=== PATIENT | male | born 1960 | race Caucasian/White ===

== ENCOUNTER 2020-02-07 11:49 | Observation (INO) ==
[2020-02-07 12:43] LABS: Bilirubin,Urine Negative (Negative); Blood,Urine Large (Negative); Clarity,Urine Turbid (Clear); Color,Urine Light-Orange (Yellow); Glucose,Urine (UA) Normal (Normal); Ketones,Urine Negative (Negative); Leukocyte Esterase,Urine Trace (Negative); Mucus,Urine Few per lpf (None-Few); Nitrite,Urine Negative (Negative); Protein,Urine 70 mg/dL (Neg-Trace); RBC,Urine TNTC per hpf (0-3); Specific Gravity,Urine 1.017 (1.010-1.025); Urobilinogen,Urine Normal (Normal); WBC,Urine 30-50 per hpf (0-3)
[2020-02-07] MEDS ORDERED: Ondansetron 4 MG/2 ML VIAL IVP ONE (13:10)
[2020-02-07] MEDS ORDERED: Morphine Sulfate 2 MG/ML SYRINGE IVP ONE (13:10)
[2020-02-07 14:06] LABS: Basophils % 0.1 %; Eosinophils % 0.1 %; Hematocrit 29.6 % (37.5-50.1); Hemoglobin 9.1 g/dL (12.9-16.9); Immature Granulocytes % 0.8 % (0-4); Lymphocytes # 0.7 K/mcL (0.6-4.6); Lymphocytes % 4.4 %; Mean Corpuscular HGB Conc 30.7 g/dL (31.6-35.5); Mean Corpuscular Hemoglobin 25.2 pg (28.0-33.3); Mean Platelet Volume 8.9 fL (9.4-12.4); Monocytes # 0.4 K/mcL (0.0-1.3); Monocytes % 2.4 %; Neutrophils # 14.6 K/mcL (1.6-8.9); Nucleated Red Blood Cells 0.1 /100 WBC (0); Platelet Count 303 K/mcL (140-400); Red Blood Count 3.61 M/mcL (4.19-5.50); Red Cell Distribution Width 15.7 % (11.5-14.5); Segmented Neutrophils % 92.2 %; White Blood Count 15.8 K/mcL (4.3-11.1)
[2020-02-07 14:10] LABS: Prothrombin Time 11.2 Seconds (9.4-12.1)
[2020-02-07 14:26] LABS: Albumin 3.6 g/dL (3.5-5.7); Bilirubin,Direct 0.1 mg/dL (0.0-0.2); Bilirubin,Indirect 0.1 mg/dL (0.0-1.0); Bilirubin,Total 0.2 mg/dL (0.3-1.0); Calcium 9.3 mg/dL (8.6-10.3); Globulin 3.5 g/dL (2.4-3.5); Potassium 5.2 mEq/L (3.5-5.1); Total Protein 7.1 g/dL (6.4-8.9)
[2020-02-07 14:36] LABS: Troponin I 0.12 ng/mL (< 0.04)
[2020-02-07 14:37] LABS: Carcinoembryonic Antigen 11.6 ng/mL (Less than 5.0)
[2020-02-07] MEDS ORDERED: Piperacillin/Tazobactam 3.375 GM in 0.9 % Sodium Chloride Mini Bag 100 ML IVPB ONE (15:20)
[2020-02-07] MEDS ORDERED: Naloxone 0.4 MG/ML INJ IVP PRN (16:04)
[2020-02-07] MEDS ORDERED: Acetaminophen 325 MG TABLET PO PRN (16:04)
[2020-02-07] MEDS ORDERED: Ondansetron 4 MG/2 ML VIAL IVP PRN (16:04)
[2020-02-07] MEDS ORDERED: *HR* HYDROcodone/Acet 5/325 mg TABLET PO PRN (16:04)
[2020-02-07] MEDS: 0.9 % Sodium Chloride 1,000 ML IVC SCH (17:41)
[2020-02-07 19:13] LABS: Adenovirus Not Detected (Not Detect); Bordetella Pertussis Not Detected (Not Detect); Chlamydophila pneumoniae Not Detected (Not Detect); Coronavirus 229E Not Detected (Not Detect); Coronavirus HKU1 Not Detected (Not Detect); Coronavirus NL63 Not Detected (Not Detect); Coronavirus OC43 Not Detected (Not Detect); Human Metapneumovirus Not Detected (Not Detect); Human Rhinovirus/Enterovirus Not Detected (Not Detect); Influenza A Subtype 2009 H1 Not Detected (Not Detect); Influenza B Not Detected (Not Detect); Mycoplasma pneumoniae Not Detected (Not Detect); Parainfluenza Virus 1 Not Detected (Not Detect); Parainfluenza Virus 2 Not Detected (Not Detect); Parainfluenza Virus 3 Not Detected (Not Detect); Parainfluenza Virus 4 Not Detected (Not Detect); Respiratory Syncytial Virus Not Detected (Not Detect)
[2020-02-07 19:16] LABS: SARS-CoV-2 Not Detected (Not Detect)
[2020-02-07] MEDS: dexAMETHasone 4 MG TABLET PO SCH (20:16)
[2020-02-07] MEDS: levETIRAcetam 250 MG TABLET PO SCH (20:16)
[2020-02-07] MEDS: *HR* OxyCODONE Immed Rel 5 MG TABLET PO PRN (20:16)
[2020-02-07] MEDS: Albuterol 2.5 MG/3 ML NEBULIZER IH PRN (20:56)
[2020-02-08 02:00] LABS: Basophils % 0.1 %; Hematocrit 29.2 % (37.5-50.1); Hemoglobin 8.8 g/dL (12.9-16.9); Immature Granulocytes % 1.1 % (0-4); Lymphocytes # 0.3 K/mcL (0.6-4.6); Lymphocytes % 2.3 %; Mean Corpuscular HGB Conc 30.1 g/dL (31.6-35.5); Mean Corpuscular Hemoglobin 24.9 pg (28.0-33.3); Mean Corpuscular Volume 82.7 fL (83.0-100.0); Monocytes # 0.3 K/mcL (0.0-1.3); Monocytes % 2.3 %; Neutrophils # 14.1 K/mcL (1.6-8.9); Platelet Count 294 K/mcL (140-400); Red Blood Count 3.53 M/mcL (4.19-5.50); Red Cell Distribution Width 15.6 % (11.5-14.5); Segmented Neutrophils % 94.2 %
[2020-02-08 02:17] LABS: Calcium 8.6 mg/dL (8.6-10.3); Potassium 5.7 mEq/L (3.5-5.1)
[2020-02-08] MEDS: *HR* OxyCODONE Immed Rel 5 MG TABLET PO PRN ×2 (03:34→19:40)
[2020-02-08] MEDS: Albuterol 2.5 MG/3 ML NEBULIZER IH PRN (03:37)
[2020-02-08] MEDS ORDERED: methocarbamoL 500 MG TABLET PO PRN (03:45)
[2020-02-08] MEDS: Piperacillin/Tazobactam 3.375 GM in 0.9 % Sodium Chloride Mini Bag 100 ML IVPB SCH ×2 (05:44→17:32)
[2020-02-08] MEDS: 0.9 % Sodium Chloride 1,000 ML IVC SCH (06:56)
[2020-02-08] MEDS: dexAMETHasone 4 MG TABLET PO SCH ×2 (08:52→19:37)
[2020-02-08] MEDS: levETIRAcetam 250 MG TABLET PO SCH ×2 (08:52→19:36)
[2020-02-08] MEDS ORDERED: D5% in Water 1,000 ML IVC PRN (11:26)
[2020-02-08] MEDS ORDERED: Dextrose Gel 15 GM/37.5 ML TUBE PO PRN ×2 (11:26)
[2020-02-08] MEDS ORDERED: *HR* Dextrose 50 % in Water (Vial) 50 ML VIAL IVP PRN (11:26)
[2020-02-08] MEDS: *HR* SitaGLIPtin 25 MG TABLET PO SCH (12:39)
[2020-02-08] MEDS: Insulin LISPRO 300 UNITS/3 ML VIAL SQ SCH ×2 (12:41→17:35)
[2020-02-09] MEDS: Piperacillin/Tazobactam 3.375 GM in 0.9 % Sodium Chloride Mini Bag 100 ML IVPB SCH (05:31)
[2020-02-09 06:00] LABS: Hematocrit 28.8 % (37.5-50.1); Hemoglobin 8.6 g/dL (12.9-16.9); Mean Corpuscular HGB Conc 29.9 g/dL (31.6-35.5); Mean Corpuscular Hemoglobin 24.9 pg (28.0-33.3); Mean Corpuscular Volume 83.2 fL (83.0-100.0); Mean Platelet Volume 9.1 fL (9.4-12.4); Platelet Count 278 K/mcL (140-400); Red Blood Count 3.46 M/mcL (4.19-5.50); Red Cell Distribution Width 15.4 % (11.5-14.5); White Blood Count 12.8 K/mcL (4.3-11.1)
[2020-02-09 06:27] LABS: Calcium 8.4 mg/dL (8.6-10.3); Potassium 5.2 mEq/L (3.5-5.1)
[2020-02-09 06:40] LABS: Folate 5.6 ng/mL (3.0-16.0)
[2020-02-09] MEDS: levETIRAcetam 250 MG TABLET PO SCH (07:58)
[2020-02-09] MEDS: dexAMETHasone 4 MG TABLET PO SCH (07:58)
[2020-02-09] MEDS: *HR* SitaGLIPtin 25 MG TABLET PO SCH (07:58)
[2020-02-09] MEDS: Insulin LISPRO 300 UNITS/3 ML VIAL SQ SCH ×2 (07:58→12:12)
[2020-02-09] MEDS: *HR* OxyCODONE Immed Rel 5 MG TABLET PO PRN (10:05)
[2020-02-09] MEDS ORDERED: Cyanocobalamin (B-12) 1,000 MCG/ML VIAL SQ ONE (10:21)
[2020-02-09] MEDS ORDERED: NON-FORMULARY MEDICATION 1 EACH EACH (Oxycodone Immed Rel 10 MG) PO PRN (10:22)
[2020-02-09] MEDS ORDERED: amLODIPine 5 MG TABLET PO SCH (10:30)
[2020-02-09 14:47] VITALS: BP 166/80
== END 2020-02-09 15:06 | disposition home or self-care (01) ==
LOC: 2ANU 11:49 → EMEROOARM 11:49 → SUATTDRO 16:24 → 2ANU 17:27
PROVIDERS: ADMIT Internal Medicine; ATTEND Internal Medicine

== ENCOUNTER 2020-04-03 17:13 | Inpatient (IN) ==
[2020-04-03] MEDS ORDERED: 0.9 % Sodium Chloride 1,000 ML IVC ONE ×2 (17:42→20:13)
[2020-04-03] MEDS ORDERED: Ipratropium/Albuterol Neb 3 ML IH ONE (17:42)
[2020-04-03] MEDS ORDERED: Vancomycin 1,500 MG/265 ML IV.SOLN IVPB ONE (17:45)
[2020-04-03] MEDS ORDERED: Cefepime HCl 1,000 MG in 0.9 % Sodium Chloride Mini Bag 100 ML IVPB STA (17:46)
[2020-04-03 18:08] LABS: Basophils % 0.1 %; Hematocrit 31.8 % (37.5-50.1); Immature Granulocytes % 0.6 % (0-4); Lymphocytes # 0.6 K/mcL (0.6-4.6); Lymphocytes % 4.4 %; Mean Corpuscular HGB Conc 31.4 g/dL (31.6-35.5); Mean Corpuscular Hemoglobin 26.7 pg (28.0-33.3); Mean Platelet Volume 8.7 fL (9.4-12.4); Monocytes # 0.7 K/mcL (0.0-1.3); Monocytes % 4.9 %; Neutrophils # 12.4 K/mcL (1.6-8.9); Platelet Count 214 K/mcL (140-400); Red Blood Count 3.74 M/mcL (4.19-5.50); Red Cell Distribution Width 21.7 % (11.5-14.5); White Blood Count 13.7 K/mcL (4.3-11.1)
[2020-04-03 18:39] LABS: Albumin 3.6 g/dL (3.5-5.7); Albumin/Globulin Ratio 0.9 (1.1-2.2); Bilirubin,Indirect 0.3 mg/dL (0.0-1.0); Bilirubin,Total 0.3 mg/dL (0.3-1.0); Calcium 9.6 mg/dL (8.6-10.3); Globulin 3.8 g/dL (2.4-3.5); Potassium 5.8 mEq/L (3.5-5.1); Total Protein 7.4 g/dL (6.4-8.9); Troponin I 0.07 ng/mL (< 0.04)
[2020-04-03 20:28] LABS: Adenovirus Not Detected (Not Detect); Coronavirus 229E Not Detected (Not Detect); Coronavirus HKU1 Not Detected (Not Detect); Coronavirus NL63 Not Detected (Not Detect); Coronavirus OC43 Not Detected (Not Detect)
[2020-04-03 20:29] LABS: Bordetella Pertussis Not Detected (Not Detect); Chlamydophila pneumoniae Not Detected (Not Detect); Human Metapneumovirus Not Detected (Not Detect); Human Rhinovirus/Enterovirus DETECTED (Not Detect); Influenza A Subtype 2009 H1 Not Detected (Not Detect); Influenza B Not Detected (Not Detect); Mycoplasma pneumoniae Not Detected (Not Detect); Parainfluenza Virus 1 Not Detected (Not Detect); Parainfluenza Virus 2 Not Detected (Not Detect); Parainfluenza Virus 3 Not Detected (Not Detect); Parainfluenza Virus 4 Not Detected (Not Detect); Respiratory Syncytial Virus Not Detected (Not Detect); SARS-CoV-2 Not Detected (Not Detect)
[2020-04-03] MEDS ORDERED: Dexamethasone 4 MG/ML VIAL IVP ONE (20:34)
[2020-04-03 21:27] LABS: Bacteria,Urine Few per hpf (None-Few); Bilirubin,Urine Negative (Negative); Blood,Urine Small (Negative); Clarity,Urine Clear (Clear); Color,Urine Colorless (Yellow); Glucose,Urine (UA) Normal (Normal); Ketones,Urine Negative (Negative); Leukocyte Esterase,Urine Negative (Negative); Mucus,Urine Few per lpf (None-Few); Nitrite,Urine Negative (Negative); Protein,Urine 50 mg/dL (Neg-Trace); Specific Gravity,Urine 1.013 (1.010-1.025); Urobilinogen,Urine Normal (Normal); WBC,Urine 0-3 per hpf (0-3)
[2020-04-03] MEDS ORDERED: Naloxone 0.4 MG/ML INJ IVP PRN (21:40)
[2020-04-03] MEDS ORDERED: Calcium Gluconate 1gm/50mL 1 GM/50 ML BAG IVPB ONE (22:01)
[2020-04-03 22:38] LABS: Calcium 8.4 mg/dL (8.6-10.3); Potassium 5.8 mEq/L (3.5-5.1)
[2020-04-03] MEDS ORDERED: *HR* Dextrose 50 % in Water (Vial) 50 ML VIAL IVP PRN (22:43)
[2020-04-03] MEDS ORDERED: D5% in Water 1,000 ML IVC PRN ×2 (22:43→22:46)
[2020-04-03] MEDS ORDERED: Dextrose Gel 15 GM/37.5 ML TUBE PO PRN ×2 (22:43)
[2020-04-03] MEDS ORDERED: Insulin Human Regular 10 UNIT in 0.9 % Sodium Chloride 10 ML IV ONE (22:44)
[2020-04-03] MEDS ORDERED: Albuterol 2.5 MG/3 ML NEBULIZER IH ONE (22:46)
[2020-04-04] MEDS: amLODIPine 5 MG TABLET PO SCH (02:27)
[2020-04-04] MEDS: *HR* OxyCODONE Immed Rel 5 MG TABLET PO PRN ×3 (02:27→23:39)
[2020-04-04 02:46] LABS: Calcium 9.1 mg/dL (8.6-10.3)
[2020-04-04] MEDS ORDERED: Vancomycin 1 EACH in 0.9 % Sodium Chloride 250 ML IVPB PRN (03:00)
[2020-04-04] MEDS ORDERED: *HR* Metoprolol 5 MG/5 ML VIAL IVP ONE (03:07)
[2020-04-04] MEDS ORDERED: Calcium Gluconate 1gm/50mL 1 GM/50 ML BAG IVPB ONE ×2 (03:08→15:15)
[2020-04-04] MEDS: Insulin Human Regular 10 UNIT in 0.9 % Sodium Chloride 10 ML IV ONE ×2 (03:33→07:01)
[2020-04-04] MEDS: *HR* Heparin 5,000 UNIT/ML VIAL SQ SCH ×2 (05:09→18:06)
[2020-04-04] MEDS ORDERED: Cefepime HCl 1,000 MG in Water for inj. (sterile) 10 ML IVP SCH (06:00)
[2020-04-04 06:05] LABS: Hematocrit 28.7 % (37.5-50.1); Hemoglobin 8.9 g/dL (12.9-16.9); Mean Corpuscular Hemoglobin 26.6 pg (28.0-33.3); Mean Corpuscular Volume 85.9 fL (83.0-100.0); Mean Platelet Volume 8.4 fL (9.4-12.4); Platelet Count 169 K/mcL (140-400); Red Blood Count 3.34 M/mcL (4.19-5.50); Red Cell Distribution Width 21.5 % (11.5-14.5); White Blood Count 11.5 K/mcL (4.3-11.1)
[2020-04-04 06:29] LABS: Albumin 3.3 g/dL (3.5-5.7); Bilirubin,Total 0.3 mg/dL (0.3-1.0); Calcium 9.4 mg/dL (8.6-10.3); Globulin 3.4 g/dL (2.4-3.5); Potassium 6.8 mEq/L (3.5-5.1); Total Protein 6.7 g/dL (6.4-8.9)
[2020-04-04 06:55] LABS: Estimated Average Glucose 143 mg/dl
[2020-04-04] MEDS: levETIRAcetam 250 MG TABLET PO SCH ×2 (08:21→20:52)
[2020-04-04] MEDS: Cefepime HCl 2,000 MG in Water for inj. (sterile) 20 ML IVP SCH (08:22)
[2020-04-04] MEDS ORDERED: amLODIPine 5 MG TABLET PO SCH (09:00)
[2020-04-04 09:08] LABS: Uric Acid 8.9 mg/dL (2.3-7.6)
[2020-04-04 14:49] LABS: Potassium 6.1 mEq/L (3.5-5.1)
[2020-04-04] MEDS: Dexamethasone 4 MG/ML VIAL IVP SCH ×2 (15:38→22:52)
[2020-04-04 18:46] LABS: Protein/Creatinine Ratio,Urine 1.34 mg/mg (0.00-0.20); Sodium, Urine 94.4 mEq/L
[2020-04-04 19:47] LABS: Calcium 8.8 mg/dL (8.6-10.3)
[2020-04-05] MEDS: *HR* Labetalol 20 MG/4 ML SYRINGE IVP PRN ×2 (00:05→12:14)
[2020-04-05 01:29] LABS: VBG HCO3 20 mEq/L (21-27); VBG PCO2 42 mmHg (41-51); VBG PH 7.29 pH Units (7.32-7.42); VBG PO2 95 mmHg (25-50)
[2020-04-05 01:37] LABS: Basophils % 0.1 %; Hematocrit 28.9 % (37.5-50.1); Hemoglobin 9.4 g/dL (12.9-16.9); Immature Granulocytes % 0.7 % (0-4); Lymphocytes # 0.2 K/mcL (0.6-4.6); Lymphocytes % 2.1 %; Mean Corpuscular HGB Conc 32.5 g/dL (31.6-35.5); Mean Corpuscular Hemoglobin 27.6 pg (28.0-33.3); Mean Platelet Volume 8.7 fL (9.4-12.4); Monocytes # 0.2 K/mcL (0.0-1.3); Monocytes % 1.4 %; Neutrophils # 10.3 K/mcL (1.6-8.9); Platelet Count 158 K/mcL (140-400); Segmented Neutrophils % 95.7 %; White Blood Count 10.8 K/mcL (4.3-11.1)
[2020-04-05 01:42] LABS: Magnesium 1.7 mg/dL (1.6-2.6); Phosphorous 6.1 mg/dL (2.7-4.5); Potassium 5.9 mEq/L (3.5-5.1)
[2020-04-05] MEDS ORDERED: Calcium Gluconate 1gm/50mL 1 GM/50 ML BAG IVPB ONE (03:21)
[2020-04-05] MEDS ORDERED: Insulin Human Regular 10 UNIT in 0.9 % Sodium Chloride 10 ML IV ONE (03:22)
[2020-04-05] MEDS ORDERED: *HR* Dextrose 50 % in Water (Vial) 50 ML VIAL IVP ONE (03:22)
[2020-04-05] MEDS ORDERED: Morphine Sulfate 2 MG/ML SYRINGE IVP PRN (04:58)
[2020-04-05] MEDS ORDERED: Acetaminophen 325 MG TABLET PO PRN (04:59)
[2020-04-05] MEDS: *HR* Heparin 5,000 UNIT/ML VIAL SQ SCH (05:19)
[2020-04-05] MEDS: levETIRAcetam 250 MG TABLET PO SCH (07:46)
[2020-04-05] MEDS: amLODIPine 5 MG TABLET PO SCH (07:46)
[2020-04-05] MEDS: Dexamethasone 4 MG/ML VIAL IVP SCH (07:46)
[2020-04-05] MEDS: Cefepime HCl 2,000 MG in Water for inj. (sterile) 20 ML IVP SCH (07:46)
[2020-04-05] MEDS: *HR* OxyCODONE Immed Rel 5 MG TABLET PO PRN (07:49)
[2020-04-05] MEDS ORDERED: *HR* OxyCODONE Immed Rel 5 MG TABLET PO PRN (09:38)
[2020-04-05 11:16] VITALS: BP 151/98
== END 2020-04-05 17:16 | disposition hospice, home (50) | DRG 469 ==
LOC: EMEROOARM 17:13 → 2ANU 17:13 → SUATTDRO 04-04 14:06
PROVIDERS: ADMIT Student in an Organized Health Care Education/Training Program; ATTEND Internal Medicine